=== PATIENT | male | born 1945 | race Caucasian/White ===

== ENCOUNTER 2020-04-09 07:28 | Outpatient (REF) | payer MEDICARE, OTHER, SELFPAY ==
[2020-04-09 09:14] LABS: Vitamin D 25-OH Total 25.5 ng/mL (>30)
== END 2020-04-09 07:29 | disposition home or self-care (01) ==
LOC: HO.HSH4W 07:28
PROVIDERS: Visit Provider Internal Medicine
DX: E03.9 Hypothyroidism, unspecified (principal)
CPT/HCPCS: 82306

== ENCOUNTER 2020-05-13 05:47 | Outpatient (REF) | payer MEDICARE, OTHER, SELFPAY ==
[2020-05-13 08:34] LABS: Glucose Urine UA NEG (NEG); Leukocyte Esterase Urine 2+ (NEG); Nitrite Urine POS (NEG); PH >= 9.0 (5.0-8.0); Specific Gravity - Urine <= 1.005 (1.005-1.025); Urine Blood 3+ (NEG); Urine Ketones NEG (NEG)
[2020-05-13 08:38] LABS: Appearance Urine CLOUDY; Color Urine YELLOW; Urine Protein 2+ MG/DL (NEG-TRACE)
[2020-05-13 08:57] LABS: Amorphous Sediment Urine 2+ /LPF; Bacteria Urine 2+ /LPF; Triple Phosphate Crystal Urine 4+ /LPF
== END 2020-05-13 05:48 | disposition home or self-care (01) ==
LOC: HO.HSH4W 05:47
PROVIDERS: Visit Provider Internal Medicine
DX: R39.15 Urgency of urination (principal); R35.0 Frequency of micturition
CPT/HCPCS: 81001; 87086; 87088; 87186

== ENCOUNTER 2020-07-11 05:55 | Outpatient (REF) | payer MEDICARE, OTHER, SELFPAY ==
[2020-07-11 08:27] LABS: Thyroid Stimulating Hormone 2.44 uIU/mL (0.32-4.0)
== END 2020-07-11 05:56 | disposition home or self-care (01) ==
LOC: HO.HSH3W 05:55
PROVIDERS: Visit Provider Internal Medicine
DX: E03.9 Hypothyroidism, unspecified (principal)
CPT/HCPCS: 36415; 84443

== ENCOUNTER 2020-11-10 08:05 | Outpatient (REF) | payer MEDICARE, OTHER, SELFPAY ==
[2020-11-10 08:46] LABS: Hematocrit 44.6 % (42-52); Hemoglobin 14.8 g/dl (14.0-18.0); Mean Corpuscular HGB Conc 33.2 g/dl (31.0-36.0); Mean Corpuscular Hemoglobin 30.6 pg (27.0-33.0); Mean Corpuscular Volume 92.3 fL (80-98); Mean Platelet Volume 9.1 fL (9.4-12.4); Platelet Count 232 X10*3/uL (160-400); Red Blood Count 4.83 X10*6/uL (4.60-5.80); Red Cell Distribution Width 13.2 % (11.0-16.0); White Blood Count 5.7 X10*3/uL (4.8-10.8)
[2020-11-10 09:06] LABS: Alanine Aminotransferase 10 U/L (0-40); Albumin Level 3.8 g/dL (3.5-5.0); Alkaline Phosphatase 107 U/L (39-117); Anion Gap 12 (12-20); Aspartate Amino Transferase 13 U/L (5-37); Bilirubin Total 0.8 mg/dL (0.0-1.0); Blood Urea Nitrogen 10 mg/dL (9-16); Calcium 9.3 mg/dL (8.4-10.2); Carbon Dioxide 24 mmol/L (22-29); Chloride 107 mmol/L (96-108); Estimated Glomerular Filt Rate > 60; Glucose Fasting 106 mg/dL (60-99); Potassium 4.3 mmol/L (3.3-5.1); Sodium 139 mmol/L (135-145)
[2020-11-10 09:19] LABS: Vitamin D 25-OH Total 32.4 ng/mL (>30)
== END 2020-11-10 08:06 | disposition home or self-care (01) ==
LOC: HO.HSH3W 08:05
PROVIDERS: Visit Provider Nurse Practitioner Acute Care
DX: D64.9 Anemia, unspecified (principal); E55.9 Vitamin D deficiency, unspecified; G30.9 Alzheimer's disease, unspecified; F02.80 Dementia in other diseases classified elsewhere, unspecified severity, without behavioral disturbance, psychotic disturbance, mood disturbance, and anxiety
CPT/HCPCS: 36415; 80053; 82306; 85027